=== PATIENT | male | born 1945 | race Two or more races ===

== ENCOUNTER 2018-05-16 12:47 | Outpatient (CLI) | payer OTHER | END 2018-05-16 12:52 | disposition home or self-care (01) | LOC: LAB 12:47 | DX: R31.9 Hematuria, unspecified (principal) ==

== ENCOUNTER → 2018-06-14 13:49 | Outpatient (CLI) | payer OTHER | END | disposition home or self-care (01) | LOC: LAB 13:49 | DX: C61 Malignant neoplasm of prostate (principal) ==

== ENCOUNTER → 2018-06-14 | Emergency (ER) | payer OTHER ==
[~2018-06-14] VITALS: Ht 165.1 cm; Wt 74.8 kg
[~2018-06-14] MED LIST: ASPIR 8181 MG; ATORVASTATIN CA40 MG; DITROPAN XL10 MG; GLUMETZA500 MG; IRBESARTAN150 MG; JARDIANCE25 MG; NORVASC2.5 MG; PLAVIX75 MG
== END | disposition left against medical advice (07) ==
LOC: ER 13:00
DX: Z53.20 Procedure and treatment not carried out because of patient's decision for unspecified reasons (principal)

== ENCOUNTER 2018-06-15 11:10 | Day surgery (SDC) | payer OTHER | END 2018-06-15 17:35 | disposition home or self-care (01) | LOC: CIR.AMB 11:10 | DX: N30.41 Irradiation cystitis with hematuria (principal) ==

== ENCOUNTER 2018-06-22 09:25 | Inpatient (IN) | payer OTHER ==
[~2018-06-22] VITALS: Ht 165.1 cm; Wt 72.6 kg
== END 2018-07-06 11:18 | disposition home or self-care (01) | DRG 715 ==
LOC: ER 09:25 → SEC-K 10:20 → SURG 10:20
PROVIDERS: ADMIT Urology
PROC: 0TCB8ZZ Extirpation of Matter from Bladder, Via Natural or Artificial Opening Endoscopic (ICD-10-PCS; 2018-06-22)
PROC: 0T5C8ZZ Destruction of Bladder Neck, Via Natural or Artificial Opening Endoscopic (ICD-10-PCS; principal; 2018-06-22 11:00)
PROC: BT43ZZZ Ultrasonography of Bilateral Kidneys (ICD-10-PCS; 2018-06-27)
PROC: BW21ZZZ Computerized Tomography (CT Scan) of Abdomen and Pelvis (ICD-10-PCS; 2018-06-27)
PROC: B54DZZZ Ultrasonography of Bilateral Lower Extremity Veins (ICD-10-PCS; 2018-06-29)
PROC: 06H03DZ Insertion of Intraluminal Device into Inferior Vena Cava, Percutaneous Approach (ICD-10-PCS; 2018-07-01)
PROC: 30233N1 Transfusion of Nonautologous Red Blood Cells into Peripheral Vein, Percutaneous Approach (ICD-10-PCS; 2018-07-01)
PROC: B246ZZZ Ultrasonography of Right and Left Heart (ICD-10-PCS; 2018-07-03)
DX: C61 Malignant neoplasm of prostate (principal); K62.5 Hemorrhage of anus and rectum; I82.4Z3 Acute embolism and thrombosis of unspecified deep veins of distal lower extremity, bilateral; E87.2 Acidosis; N30.41 Irradiation cystitis with hematuria; N17.8 Other acute kidney failure; R31.0 Gross hematuria; N30.21 Other chronic cystitis with hematuria; N40.1 Benign prostatic hyperplasia with lower urinary tract symptoms; R33.8 Other retention of urine; D64.89 Other specified anemias; E11.9 Type 2 diabetes mellitus without complications; I25.10 Atherosclerotic heart disease of native coronary artery without angina pectoris; Z98.61 Coronary angioplasty status
CPT/HCPCS: 37191; C1751

== ENCOUNTER 2019-05-05 14:57 | Outpatient (CLI) | payer OTHER | END 2019-05-05 15:03 | disposition home or self-care (01) | LOC: NUCLEAR 14:57 | DX: I82.493 Acute embolism and thrombosis of other specified deep vein of lower extremity, bilateral (principal) ==

== ENCOUNTER 2020-08-07 05:55 | Day surgery (SDC) | payer OTHER ==
[~2020-08-07 05:55] MED LIST changes: +CATAPRES0.1 MG PO; +JANUVIA100 MG PO
[2020-08-07] MEDS ORDERED: PERCOCET 5-3251 EACH PO (11:07)
[2020-08-07] MEDS ORDERED: NEURONTIN600 M1 PO (11:07)
[2020-08-07] MEDS ORDERED: COLACE100 MG PO (11:07)
== END 2020-08-07 13:46 | disposition home or self-care (01) ==
LOC: CIR.AMB 05:55
PROVIDERS: ATTEND Surgery
DX: K40.90 Unilateral inguinal hernia, without obstruction or gangrene, not specified as recurrent (principal); D17.6 Benign lipomatous neoplasm of spermatic cord; Z20.822 Contact with and (suspected) exposure to COVID-19

== ENCOUNTER 2021-09-22 10:22 | Outpatient (CLI) | payer OTHER ==
[~2021-09-22 10:22] MED LIST changes: +COLACE100 MG PO; +NEURONTIN600 M1 PO; +PERCOCET 5-3251 EACH PO
== END 2021-09-22 10:25 | disposition home or self-care (01) ==
LOC: SONOGRAMA 10:22
PROVIDERS: ATTEND Pathology Anatomic Pathology & Clinical Pathology
DX: C07 Malignant neoplasm of parotid gland (principal)

== ENCOUNTER 2021-11-15 12:08 | Outpatient (CLI) | payer OTHER | END 2021-11-15 12:13 | disposition home or self-care (01) | LOC: LAB 12:08 | PROVIDERS: ATTEND Urology | DX: N30.00 Acute cystitis without hematuria (principal) ==

== ENCOUNTER 2021-11-20 14:33 | Outpatient (CLI) | payer OTHER | END 2021-11-20 14:36 | disposition home or self-care (01) | LOC: LAB 14:33 | PROVIDERS: ATTEND Urology | DX: N30.00 Acute cystitis without hematuria (principal) ==

== ENCOUNTER 2021-12-24 05:50 | Day surgery (SDC) | payer OTHER ==
[~2021-12-24 05:50] MED LIST changes: +GLUMETZA500 MG PO
== END 2021-12-24 11:15 | disposition home or self-care (01) ==
LOC: CIR.AMB 05:50
PROVIDERS: ATTEND Urology
DX: N35.913 Unspecified membranous urethral stricture, male (principal); N32.0 Bladder-neck obstruction; C61 Malignant neoplasm of prostate; I10 Essential (primary) hypertension; E78.5 Hyperlipidemia, unspecified; Z87.891 Personal history of nicotine dependence; E11.9 Type 2 diabetes mellitus without complications; Z92.21 Personal history of antineoplastic chemotherapy; K21.9 Gastro-esophageal reflux disease without esophagitis; Z79.84 Long term (current) use of oral hypoglycemic drugs

== ENCOUNTER 2022-01-07 15:54 | Emergency (ER) | payer OTHER ==
[~2022-01-07] VITALS: Ht 165.1 cm; Wt 69.9 kg
== END 2022-01-07 21:18 | disposition home or self-care (01) ==
LOC: ER 15:54
DX: E11.65 Type 2 diabetes mellitus with hyperglycemia (principal); Z79.84 Long term (current) use of oral hypoglycemic drugs; I10 Essential (primary) hypertension

== ENCOUNTER 2022-01-16 16:25 | Inpatient (IN) | payer OTHER ==
[~2022-01-16] VITALS: Ht 165.1 cm; Wt 70.3 kg
== END 2022-01-17 11:53 | disposition home or self-care (01) | DRG 663 ==
LOC: ER 16:25 → SURH 17:09
PROVIDERS: ADMIT Urology; ATTEND Urology
PROC: 0W3R8ZZ Control Bleeding in Genitourinary Tract, Via Natural or Artificial Opening Endoscopic (ICD-10-PCS; principal; 2022-01-16 20:00)
DX: N99.112 Postprocedural membranous urethral stricture, male (principal); N30.41 Irradiation cystitis with hematuria; R31.0 Gross hematuria; C61 Malignant neoplasm of prostate

== ENCOUNTER 2022-06-22 11:52 | Outpatient (CLI) | payer OTHER | END 2022-06-22 11:57 | disposition home or self-care (01) | LOC: SONOGRAMA 11:52 | PROVIDERS: ATTEND Urology | DX: C61 Malignant neoplasm of prostate (principal) ==

== ENCOUNTER 2022-06-24 08:27 | Outpatient (CLI) | payer OTHER | END 2022-06-24 08:34 | disposition home or self-care (01) | LOC: TOM 08:27 | PROVIDERS: ATTEND Urology | DX: N28.89 Other specified disorders of kidney and ureter (principal) ==

== ENCOUNTER 2023-01-14 10:51 | Outpatient (CLI) | payer OTHER | END 2023-01-14 10:59 | disposition home or self-care (01) | LOC: TOM 10:51 | PROVIDERS: ATTEND Urology | DX: N39.0 Urinary tract infection, site not specified (principal) ==

== ENCOUNTER 2024-02-03 13:08 | Outpatient (CLI) | payer OTHER | END 2024-02-03 13:10 | disposition home or self-care (01) | LOC: NUCLEAR 13:08 | PROVIDERS: ATTEND Urology | DX: N13.1 Hydronephrosis with ureteral stricture, not elsewhere classified (principal) | CPT/HCPCS: 78709; A9539 ==